=== PATIENT | female | born 1995 | race Two or more races ===

== ENCOUNTER 2023-01-16 09:35 | Inpatient (IN) | payer SELFPAY ==
[~2023-01-16] VITALS: Ht 170 cm; Wt 60.0 kg
[2023-01-16 09:58] LABS: INR 1.5 (0.9-1.15)
[2023-01-17] MEDS ORDERED: ENOXAPARIN SOD 30 MG/0.3 ML SYRINGE SC SCH (10:00)
== END 2023-01-16 12:47 | disposition home or self-care (01) | DRG 379 ==
LOC: EAST 09:35
PROVIDERS: ADMIT Internal Medicine Geriatric Medicine; ATTEND Internal Medicine Geriatric Medicine
DX: K92.2 Gastrointestinal hemorrhage, unspecified (principal)
CPT/HCPCS: 36415; 82565; 85049; 85610; G0378